=== PATIENT | female | born 1975 | race Native Hawaiian/Other Pacific Islander ===

== ENCOUNTER 2021-09-26 00:36 | Emergency (ER) | payer OTHER ==
[~2021-09-26] VITALS: Ht 177.8 cm; Wt 57.6 kg
[2021-09-26 01:25] VITALS: BP 127/72; TEMP 98.1
== END 2021-09-26 01:25 | disposition home or self-care (01) ==
LOC: ED 00:36
DX: H72.92 Unspecified perforation of tympanic membrane, left ear (principal); T70.29XA Other effects of high altitude, initial encounter; R42 Dizziness and giddiness; W22.8XXA Striking against or struck by other objects, initial encounter; Y92.89 Other specified places as the place of occurrence of the external cause
CPT/HCPCS: 99282